=== PATIENT | female | born 2000 | race African-American/Black ===

== ENCOUNTER 2024-10-22 14:30 | Outpatient (RCR) | payer MEDICAID, SELFPAY ==
--- NOTE | 2024-10-22 14:55 | PTNOTE_ITS ---
PT OP Initial Eval Patient Information Outpatient Physical Therapy Treatment Date: 10/22/24 Visit Reasons: Left knee pain Medical Diagnosis: Left Knee Pain Treatment Dx #1: Left Knee Pain Start of Care: 10/22/24 Date of Onset: 2015 Smoking Status Smoking Status: Never smoker Initial Assessment Subjective: Pt is a 24 y/o female reports of chronic left knee cap dislocation since 2016. Pt's past imaging confirmed lateral patella subluxation. Pt has limitation with standing, chores, balance, walking, squatting, kneeling, and performing recreational activities. Objective: Left Knee AROM: 0 deg to 130 deg with pain Left Knee MMTs: grossly 4-/5 Left Hip MMTs: grossly 4-/5 Special Test (+) ant knee compression test Assessment: Pt demonstrate left knee pain leading to difficulty with ADLs. Pt will attempt physical therapy if pain persist Pt will be refer back to provider for further consultation. [employer] Goals 1) Decrease knee pain to 2/10 in 6 wks to be able to perform chores 2) Increase knee MMTs grossly to 4/5 in 6 wks to be able to perform squatting activities 3) Increase hip MMTs grossly to 4-/5 in 6 wks to be able to perform recreational activities 4) Indep with HEP Treatment Plan 1) Manual Therapy 2) Therapeutic Activities 3) Therapeutic Exercises 4) Modalities (ice, heat) 5) Balance Training Frequency and Duration: 2 x wk for 6 wks Certification Dates: 10/22/24 to 01/19/25 Procedure Charges OP PT Eval Mod Complex 30 minutes: Yes
== END 2024-10-23 23:59 | disposition home or self-care (01) ==
LOC: CPTX 14:30
PROVIDERS: PCP Physician Assistant; Referring Provider Physician Assistant; Visit Provider Physician Assistant
DX: M25.562 Pain in left knee (principal); R26.2 Difficulty in walking, not elsewhere classified; S83.012D Lateral subluxation of left patella, subsequent encounter; X58.XXXD Exposure to other specified factors, subsequent encounter
CPT/HCPCS: 97162

== ENCOUNTER 2024-11-02 14:12 | Outpatient (RCR) | payer MEDICAID, SELFPAY ==
--- NOTE | 2024-11-02 14:33 | PT.ODAYNRPT ---
PT Outpatient Daily Note OP Daily Note Outpatient Physical Therapy Treatment Date: 11/02/24 Visit Reasons: LEFT KNEE PAIN Subjective: Pt reports L knee clicks and pops . Objective: Please see flow sheet for ther ex list. Assessment: Pt demonstrates poor activity tolerance due to pain discomfort and knee crepitus. Plan: Continue with POC. Length of Time (minutes) of Treatment: 30 Minutes Procedure Charges Therapeutic Exercise 30 minutes: Yes
== END 2024-11-23 23:59 | disposition home or self-care (01) ==
LOC: CPTX 14:12
PROVIDERS: PCP Physician Assistant; Referring Provider Physician Assistant; Visit Provider Physician Assistant
DX: M25.562 Pain in left knee (principal); R26.2 Difficulty in walking, not elsewhere classified; R26.89 Other abnormalities of gait and mobility; G89.29 Other chronic pain
CPT/HCPCS: 97110

== ENCOUNTER 2024-12-03 14:30 | Outpatient (RCR) | payer MEDICAID, SELFPAY ==
--- NOTE | 2024-11-26 13:35 | PT.ODAYNRPT ---
PT Outpatient Daily Note OP Daily Note Outpatient Physical Therapy Treatment Date: 11/26/24 Visit Reasons: left knee pain Subjective: Pt reports L knee is doing ok still hurts continues to use knee brace. Objective: Please see flow sheet for ther ex list. Assessment: Light AROM interventions completed with minimal discomfort, no pain to report with exercises. Plan: Continue with POC. Length of Time (minutes) of Treatment: 30 Minutes Procedure Charges Therapeutic Exercise 30 minutes: Yes
--- NOTE | 2024-12-03 15:23 | PT.ODAYNRPT ---
PT Outpatient Daily Note OP Daily Note Outpatient Physical Therapy Treatment Date: 12/03/24 Visit Reasons: left knee pain Subjective: Pt reports L knee is doing ok, shared that her R knee popped a few days ago and was really painful had hard time walking. Objective: Please see flow sheet for ther ex list. Assessment: Pt demonstrates increase tolerance with added closed chain interventions indicating progress. Plan: Continue with POC. Length of Time (minutes) of Treatment: 30 Minutes Procedure Charges Therapeutic Exercise 30 minutes: Yes
--- NOTE | 2024-12-25 09:53 | PTNOTE_ITS ---
PT OP Progress/Discharge Note Date of Service: 12/25/24 Progress Note/DC Note Progress Note/Discharge Note: DC Note Patient Information Visit Reasons: left knee pain Service Discharge Date: 12/25/24 Status Assessment: Pt has been seen for 4 visits (eval + 3 visits). Pt last treated on 12/03/24. Pt no showed 2 appts (11/09, 12/17). At this time Pt will be d/c from care due non- compliance per attendance policy. Pt did not meet set goals in therapy; thank you for your referrals
== END 2024-12-23 23:59 | disposition home or self-care (01) ==
LOC: CPTX 14:30
PROVIDERS: PCP Physician Assistant; Referring Provider Physician Assistant; Visit Provider Physician Assistant
DX: M25.562 Pain in left knee (principal); R26.89 Other abnormalities of gait and mobility; R26.2 Difficulty in walking, not elsewhere classified; S83.002D Unspecified subluxation of left patella, subsequent encounter; X58.XXXD Exposure to other specified factors, subsequent encounter
CPT/HCPCS: 97110